=== PATIENT | male | born 1950 ===

== ENCOUNTER 2023-04-25 18:12 | Emergency (ER) | payer MEDICARE, BC ==
[2023-04-25] MEDS: Oxymetazoline 0.05% Nasal Spray 30 ML Bottle NAS ONE ×2 (19:04→19:22)
[2023-04-25 19:07] VITALS: BP 138/64
[2023-04-25 19:53] VITALS: PULSE 57
== END 2023-04-25 19:53 | disposition home or self-care (01) ==
LOC: MW.ED 18:12
DX: R04.0 Epistaxis (principal); J44.9 Chronic obstructive pulmonary disease, unspecified; E78.00 Pure hypercholesterolemia, unspecified; Z79.82 Long term (current) use of aspirin; Z79.899 Other long term (current) drug therapy; Z75.8 Other problems related to medical facilities and other health care
CPT/HCPCS: 99283; A9270